=== PATIENT | male | born 1990 | race African-American/Black ===

== ENCOUNTER 2022-02-19 08:52 | Emergency (ER) | payer MEDICAID ==
[~2022-02-19] VITALS: Ht 188 cm; Wt 113.6 kg
[2022-02-19] MEDS ORDERED: LIDOCAINE 1% 10 ML VIAL PERC ONE (11:30)
[2022-02-19] MEDS ORDERED: POVIDONE-IODINE 10% 15 ML SOLUTION UD TP ONE (11:30)
[2022-02-19] MEDS ORDERED: SULF-261 PO (12:42)
[2022-02-19 13:06] VITALS: BP 124/63
== END 2022-02-19 13:30 | disposition home or self-care (01) ==
LOC: EMS 09:02
DX: L02.413 Cutaneous abscess of right upper limb (principal); F12.90 Cannabis use, unspecified, uncomplicated
CPT/HCPCS: 99283; 10060; J3490